=== PATIENT | female | born 1965 | race Hispanic/Latino ===

== ENCOUNTER 2016-07-05 15:16 | Emergency (ER) | payer BC ==
[~2016-07-05] VITALS: Ht 160 cm; Wt 72.6 kg
== END 2016-07-05 16:00 | disposition home or self-care (01) ==
LOC: ED 15:16
DX: N75.0 Cyst of Bartholin's gland (principal)
CPT/HCPCS: 99281

== ENCOUNTER 2018-08-15 11:45 | Outpatient (CLI) | payer OTHER | END 2018-08-15 19:52 | disposition home or self-care (01) | LOC: RAD 11:45 | DX: M25.551 Pain in right hip (principal) ==

== ENCOUNTER 2019-01-30 15:23 | Emergency (ER) | payer OTHER ==
[~2019-01-30] VITALS: Ht 162.6 cm; Wt 77.1 kg
[2019-01-30 15:56] VITALS: BP 144/79; TEMP 98.1
== END 2019-01-30 17:30 | disposition home or self-care (01) ==
LOC: ED 15:23
DX: S33.5XXA Sprain of ligaments of lumbar spine, initial encounter (principal); M54.41 Lumbago with sciatica, right side; X50.9XXA Other and unspecified overexertion or strenuous movements or postures, initial encounter; Y92.239 Unspecified place in hospital as the place of occurrence of the external cause
CPT/HCPCS: 81000; 99282

== ENCOUNTER 2020-06-20 14:34 | Outpatient (CLI) | payer OTHER | END 2020-06-20 22:24 | disposition home or self-care (01) | LOC: INF 14:34 | PROVIDERS: ATTEND Internal Medicine | DX: Z23 Encounter for immunization (principal) ==

== ENCOUNTER 2020-07-11 14:56 | Outpatient (CLI) | payer OTHER | END 2020-07-11 20:41 | disposition home or self-care (01) | LOC: INF 14:56 | PROVIDERS: ATTEND Internal Medicine | DX: Z23 Encounter for immunization (principal) ==